=== PATIENT | female | born 1955 | race Caucasian/White ===

== ENCOUNTER 2016-12-11 07:02 | Day surgery (SDC) | payer BC, OTHER ==
[~2016-12-11] VITALS: Ht 160 cm; Wt 48.2 kg
[~2016-12-11 07:02] MED LIST: CETI-260 PO; SODIUM CHLORIDE 0.9% 1,000 ML IV SCH
[2016-12-11] MEDS ORDERED: SODIUM CHLORIDE 0.9% 1,000 ML IV ONE (07:16)
[2016-12-11 07:52] LABS: BASOPHILS % (AUTO) 0.7 % (0.0-2.0); EOSINOPHILS % (AUTO) 0.7 % (1.0-6.0); HEMATOCRIT 33.8 % (36-46); HEMOGLOBIN 10.9 g/dL (12.0-16.0); LYMPHOCYTES # (AUTO) 0.8 K/uL (1.0-4.8); LYMPHOCYTES % (AUTO) 15.5 % (22.0-44.0); MEAN CORPUSCULAR HEMOGLOBIN 25.6 pg (26.0-34.0); MEAN CORPUSCULAR HGB CONC 32.1 G/dL (31.0-37.0); MEAN CORPUSCULAR VOLUME 80 fL (80-100); MONOCYTES # (AUTO) 0.6 K/uL (0.1-1.0); MONOCYTES % (AUTO) 11.5 % (2.0-9.0); NEUTROPHILS # (AUTO) 3.7 K/uL (1.8-7.7); NEUTROPHILS % (AUTO) 71.6 % (40.0-70.0); PLATELET COUNT (AUTO) 402 K/uL (150-450); RED BLOOD CELL COUNT(AUTO) 4.24 MIL/uL (4.00-5.20); RED CELL DISTRIBUTION WIDTH 17.9 % (11.5-14.5); WHITE BLOOD COUNT (AUTO) 5.2 K/uL (4.5-11.0)
[2016-12-11] MEDS ORDERED: LORazepam 2 MG/ML VIAL IVP ONE (08:00)
[2016-12-11 08:05] LABS: PROTHROMBIN TIME 10.8 SEC (9.4-11.6)
[2016-12-11 08:32] LABS: RBC MORPHOLOGY COMMENT ABNORMAL RBC MORPH
[2016-12-11] MEDS ORDERED: LORazepam 2 MG/ML VIAL ONE (09:31)
[2016-12-11] MEDS ORDERED: FentaNYL CITRATE-PF 100 MCG/2 ML VIAL ONE ×2 (11:26→12:22)
[2016-12-11] MEDS ORDERED: MIDAZOLAM HCL 2 MG/2 ML VIAL ONE (11:26)
[2016-12-11] MEDS ORDERED: MIDAZOLAM HCL 2 MG/2 ML VIAL IVP ONE (11:29)
[2016-12-11] MEDS ORDERED: GELATIN SPONGE,ABSORBABLE 12-7 MM TP ONE ×2 (12:12→12:16)
[2016-12-11] MEDS ORDERED: FentaNYL CITRATE-PF 100 MCG/2 ML VIAL IVP ONE (12:24)
[2016-12-11] MEDS ORDERED: NALOXONE HCL 0.4 MG/ML VIAL ONE (12:30)
[2016-12-11] MEDS ORDERED: NALOXONE HCL 0.4 MG/ML VIAL IVP ONE (12:30)
[2016-12-11] MEDS ORDERED: KETOROLAC TROMETHAMINE 60 MG/2 ML VIAL IM ONE ×2 (12:43)
[2016-12-11] MEDS ORDERED: HYDROmorphone HCL 2 MG TABLET PO ONE (13:15)
[2016-12-11] MEDS ORDERED: PROMETHAZINE HCL 25 MG TABLET PO PRN (13:45)
[2016-12-11] MEDS ORDERED: HYDROmorphone HCL 2 MG TABLET ONE (13:48)
[2016-12-11] MEDS ORDERED: HYDROmorphone HCL 2 MG TABLET PO SCH (16:00)
== END 2016-12-11 16:05 | disposition home or self-care (01) ==
LOC: SDS 07:02 → EDSTATUS 09:00 → SDS 16:05
PROVIDERS: ATTEND Radiology Diagnostic Radiology
DX: C50.912 Malignant neoplasm of unspecified site of left female breast (principal); Z98.890 Other specified postprocedural states; Z79.01 Long term (current) use of anticoagulants
CPT/HCPCS: 19105 ×2; 36415; 85025; 85610; 85730; C2618; J1885; J2060; J2250; J2310; J3010; J7030; 76942